=== PATIENT | male | born 1995 | race African-American/Black ===

== ENCOUNTER 2017-01-30 19:35 | Emergency (ER) | payer OTHER ==
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
--- NOTE | ~2017-01-30 | EKG ---
PATIENT: KAREEM LOPEZ UNIT #: [id number] Ventricular Rate: 85 BPM Atrial Rate: 85 BPM P-R Interval: 148 ms QRS Duration: 86 ms Q-T Interval: 340 ms QTC Calculation(Bezet): 404 ms P [place]: 24 degrees Calculated R [place]: 79 degrees Calculated T [place]: 33 degrees Diagnosis Line: Normal sinus rhythm Diagnosis Line: ST elevation, consider early repolarization Diagnosis Line: Borderline ECG Diagnosis Line: No previous ECGs available Diagnosis Line: Confirmed by GEORGE CAIN MD ([id number]) on Diagnosis Line: 01/31/2017 4:03:43 PM INTERPRETING MD: CROW
[~2017-01-30 19:35] MED LIST: HUMALOG100 U/ML SUBQ; LANTUS100 U/M1 SQ
[2017-01-30 20:19] LABS: ARTERIAL BLOOD GAS pH 7.356 (7.350-7.450)
[2017-01-30 20:20] LABS: ARTERIAL BLD GAS O2 SATURATION 76.8 % (90.0-100.0); ARTERIAL BLOOD GAS CARBOXY HB 10.7 %sat (0.0-9.0); ARTERIAL BLOOD GAS HCO3 25.4 mmol/L; ARTERIAL BLOOD GAS PCO2 45.4 mmHg (35.0-45.0); ARTERIAL BLOOD GAS PO2 47.9 mmHg (80.0-100); ARTERIAL DRAW? NO
[2017-01-30 20:29] LABS: BASOPHIL% 0.4 % (0-2.5); EOSINOPHIL% 0.8 % (0.0-7.0); HEMOGLOBIN 14.6 gm/dL (13.0-16.0); LYMPHOCYTE# 2.2 X10e3 (1.0-3.5); LYMPHOCYTE% 40.6 % (17.0-45.0); MEAN CELL VOLUME 90.1 FL (83-96); MEAN CORPUSCULAR HEMOGLOBIN 29.8 PG (28-34); MEAN CORPUSCULAR HGB CONC 33.1 g/dL (30-36); MEAN PLATELET VOLUME 8.8 FL (6.5-11.5); MONOCYTE# 0.3 X10e3 (0-1.0); MONOCYTE% 5.4 % (3.0-12.0); NEUTROPHIL# 2.8 X10e3 (1.5-7.1); NEUTROPHIL% 52.8 % (40-75); PLATELET COUNT 259 X10e3 (140-420); RED BLOOD COUNT 4.88 X10e (3.90-5.60); RED CELL DISTRIBUTION WIDTH 13.6 % (11.0-15.5); WHITE BLOOD COUNT 5.4 X10e3 (4.0-10.5)
[2017-01-30 20:31] LABS: DIFF IND NO
[2017-01-30 20:40] LABS: POC - CKMB <1.0 ng/mL (0.0-7.9); POC - TROPONIN <0.05 ng/mL (<=0.05)
[2017-01-30 20:51] LABS: URINE SOURCE CLEAN CATCH
[2017-01-30 20:59] LABS: ALBUMIN SERUM 4.3 g/dL (3.5-5.0); ALKALINE PHOSPHATASE 107 U/L (32-92); ALT (SGPT) 15 U/L (10-40); AMYLASE 11 U/L (0-46); AST (SGOT) 14 U/L (10-42); BETA HYDROXYBUTYRATE 1.74 MMOL/L (0.02-0.27); BILIRUBIN, DIRECT 0.1 mg/dL (0.0-0.2); BILIRUBIN,INDIRECT 1.2 mg/dL (0.0-0.9); BILIRUBIN,TOTAL 1.3 mg/dL (0.2-2.0); BLOOD UREA NITROGEN 17 mg/dL (9-23); BUN/CREATININE RATIO 15.45; CARBON DIOXIDE 22 mmol/L (22-31); CHLORIDE 90 mmol/L (100-111); CREATININE SERUM 1.1 mg/dL (0.6-1.4); GLOM FILT RATE Estimated 111.4 mL/min (>60); POTASSIUM 4.8 mmol/L (3.5-5.1); PROTEIN TOTAL SERUM 7.5 g/dL (6.0-8.3)
[2017-01-30 21:00] LABS: ALCOHOL BLOOD <5 mg/dL (0); GLUCOSE FASTING 642 mg/dL (70-110); SODIUM 123 mmol/L (135-145)
[2017-01-30 21:06] LABS: AMPHETAMINE NEG (NEG); BARBITURATES NEG (NEG); BENZODIAZEPINES NEG (NEG); COCAINE NEG (NEG); MARIJUANA NEG (NEG); OPIATES NEG (NEG); TRICYCLIC ANTIDEPRESSANTS NEG (NEG); U METHADONE NEG (NEG)
[2017-01-30 21:11] LABS: URBCS1 AUWI 0-2 /[HPF] (0-2); URINE APPEARANCE CLEAR; URINE BACTERIA AUWI NEG (NEGATIVE); URINE BILIRUBIN NEG (NEG); URINE BLOOD TRACE (NEG); URINE COLOR YELLOW; URINE GLUCOSE >1000 MG/DL (NEG); URINE KETONE 1+ (NEG); URINE LEUKOCYTE ESTERASE NEG (NEG); URINE NITRATE NEG (NEG); URINE PH 5.5 (5-8); URINE PROTEIN NEG (NEG); URINE SPECIFIC GRAVITY 1.034 (1.003-1.035); URINE SQUAMOUS EPITHELIAL CELL NONE SEEN /[HPF]; URINE UROBILINOGEN 0.2 MG/DL (NEG); UWBCS1 AUWI 0-2 (0-5)
[2017-01-30 21:13] LABS: CULTURE INDICATED? NO
== END 2017-01-30 22:10 | disposition left against medical advice (07) ==
LOC: CED 19:35
PROVIDERS: Student in an Organized Health Care Education/Training Program
DX: S20.212A Contusion of left front wall of thorax, initial encounter (principal); E13.10 Other specified diabetes mellitus with ketoacidosis without coma; Z79.4 Long term (current) use of insulin; V89.2XXA Person injured in unspecified motor-vehicle accident, traffic, initial encounter; Y92.410 Unspecified street and highway as the place of occurrence of the external cause
CPT/HCPCS: 36415; 71010; 80048; 80076; 80307; 81003; 82010; 82150; 82553; 82803; 82947; 83735; 84484; 85025; 87040; 93005; 96360; 99285; G0480; J1815